=== PATIENT | female | born 1945 | race Two or more races ===

== ENCOUNTER 2021-03-23 09:18 | Outpatient (CLI) | payer OTHER | END 2021-03-23 09:30 | disposition home or self-care (01) | LOC: SONOGRAMA 09:18 | DX: R10.84 Generalized abdominal pain (principal) ==

== ENCOUNTER 2021-04-19 12:33 | Outpatient (CLI) | payer OTHER | END 2021-04-19 12:46 | disposition home or self-care (01) | LOC: MRI 12:33 | PROVIDERS: ATTEND Psychiatry & Neurology Clinical Neurophysiology | DX: I67.82 Cerebral ischemia (principal); G11.2 Late-onset cerebellar ataxia; H81.4 Vertigo of central origin | CPT/HCPCS: 70551 ==